=== PATIENT | female | born 1965 | race Two or more races ===

== ENCOUNTER 2022-05-14 11:09 | Emergency (ER) | payer OTHER ==
[~2022-05-14] VITALS: Ht 162.6 cm; Wt 106.6 kg
[2022-05-14] MEDS ORDERED: TENORMIN25 MG PO (11:36)
== END 2022-05-14 15:59 | disposition home or self-care (01) ==
LOC: ER 11:09
DX: S76.012A Strain of muscle, fascia and tendon of left hip, initial encounter (principal); X58.XXXA Exposure to other specified factors, initial encounter; Y93.9 Activity, unspecified; Y92.9 Unspecified place or not applicable; Y99.9 Unspecified external cause status

== ENCOUNTER 2022-09-07 12:19 | Outpatient (CLI) | payer OTHER ==
[~2022-09-07 12:19] MED LIST: TENORMIN25 MG PO
== END 2022-09-07 12:34 | disposition home or self-care (01) ==
LOC: MAMO-SONO 12:19
PROVIDERS: ATTEND Obstetrics & Gynecology
DX: Z12.31 Encounter for screening mammogram for malignant neoplasm of breast (principal); N64.4 Mastodynia; N63.0 Unspecified lump in unspecified breast; R10.2 Pelvic and perineal pain; J45.31 Mild persistent asthma with (acute) exacerbation

== ENCOUNTER 2022-09-08 13:41 | Outpatient (CLI) | payer OTHER | END 2022-09-08 13:43 | disposition home or self-care (01) | LOC: NUCLEAR 13:41 | PROVIDERS: ATTEND Obstetrics & Gynecology | DX: M81.0 Age-related osteoporosis without current pathological fracture (principal) ==

== ENCOUNTER 2023-09-05 10:51 | Outpatient (CLI) | payer OTHER | END 2023-09-05 10:52 | disposition home or self-care (01) | LOC: NUCLEAR 10:51 | DX: M79.604 Pain in right leg (principal); I73.9 Peripheral vascular disease, unspecified; R60.0 Localized edema ==

== ENCOUNTER → 2023-09-06 09:04 | Outpatient (CLI) | payer OTHER | END | disposition home or self-care (01) | LOC: NUCLEAR 09:00 | DX: M79.604 Pain in right leg (principal); I73.9 Peripheral vascular disease, unspecified; R60.0 Localized edema ==

== ENCOUNTER 2024-04-02 10:10 | Outpatient (CLI) | payer OTHER | END 2024-04-02 10:17 | disposition home or self-care (01) | LOC: RAD 10:10 | PROVIDERS: ATTEND Internal Medicine Pulmonary Disease | DX: J11.1 Influenza due to unidentified influenza virus with other respiratory manifestations (principal) ==

== ENCOUNTER 2025-06-19 08:44 | Outpatient (CLI) | payer OTHER ==
[2025-06-19 09:58] LABS: BASO % 0.5 % (0.1-1.2); EOS # 0.16 (0.04-0.54); EOS % 2.1 % (0.7-7.0); LYMPH # 4.01 (1.18-3.74); LYMPH % 51.7 % (19.3-53.1); MEAN PLATELET VOLUME 11.40 fl (9.4-12.4); MONO # 0.46 (0.24-0.82); MONO % 5.9 % (4.7-12.5); NEUT # 3.07 (1.56-6.13); NEUT % 39.7 % (34.0-71.1); RED CELL DISTRIBUTION WIDTH 14.2 % (11.6-14.4); URINE APPEARANCE Clear; URINE BILIRRUBIN Negative (NEGATIVE); URINE BLOOD Negative; URINE COLOR Yellow; URINE GLUCOSE Negative (NEGATIVE); URINE KETONE Negative (NEGATIVE); URINE LEUKOCYTE Negative; URINE NITRATE Negative; URINE PROTEIN Negative (NEGATIVE); URINE UROBILINOGEN 0.2 E.U./dl
[2025-06-19 10:01] LABS: ERYTHROCYTE SEDIMENTATION RATE 55 mm/hr (0-30); URINE BACTERIA 34.7 uL (0.0-1933); URINE EPITHELIAL CELLS 3.9 uL (0.0-38.8); URINE RBC 2.9 uL (0.0-20.8)
[2025-06-19 10:03] LABS: URINE CAST 0.00 uL (0.0-1.40); URINE WBC 0.6 uL (0.0-23.2)
[2025-06-19 10:43] LABS: ALT/SGPT 37.0 U/L (12-78); AST/SGOT 21.0 U/L (15-37); BILIRUBIN TOTAL 0.52 mg/dL (0.3-1.2); BUN CREA RATIO 28.0 (7.0-25.0); CHOL HDL RATIO 3.5 (0-5.0); CREATININE SERUM 0.54 mg/dL (0.55-1.02); GFR 115.55; GLOBULINA 3.7 G/DL (2.4-3.5); GLUCOSE FASTING 107.0 mg/dL (65-100); HDL 63.0 mg/dl (40-60); LDL 135.0 mg/dl (0-130); OSMOLALITY SERUM 279.0 MOSM/KG (275-295); T4 TOTAL 9.7 UG/DL (4.8-13.9); TSH 1.67 uIU/mL (0.358-3.74); VLDL 21.0 (0-39)
[2025-06-19 11:09] LABS: T3 TOTAL 1.34 ng/ml (0.846-2.02); VITAMIN D3 25 HYDROXY 28.1 ng/ml (30-120)
== END 2025-06-19 08:47 | disposition home or self-care (01) ==
LOC: LAB 08:44
DX: I10 Essential (primary) hypertension (principal); N30.00 Acute cystitis without hematuria; E07.9 Disorder of thyroid, unspecified; E55.9 Vitamin D deficiency, unspecified; R73.9 Hyperglycemia, unspecified; M25.50 Pain in unspecified joint